=== PATIENT | male | born 1945 | race Caucasian/White ===

== ENCOUNTER 2018-06-09 04:02 | Inpatient (IN) | payer MEDICAID, MEDICARE ==
[2018-06-09] MEDS ORDERED: Sodium Chloride 0.9% 1,000 ML IV ONE (04:33)
--- NOTE | 2018-06-09 04:38 | ED Physician Chart ---
ED Chief Complaint/HPI - Patient Information Date Seen:: 06/09/18 Time Seen:: 04:05 Chief Complaint:: Abdominal Pain History of Present Illness:: onset x 2 days of intermittent, diffuse, crampy Abd. Pain, N/V/D; no report of trauma, LOC, ALOC, AMS, H/As, S/T, neck pain, C/P, SOB, A/C, fever, chills, or urinary s/s Allergies:: Allergies Allergy/AdvReac Type Severity Reaction Status Date / Time azithromycin Allergy Verified 06/09/18 04:26 Vitals:: Vital Signs - 8 hr 06/09/18 04:05 Temp 97.9 F HR 73 RR 20 BP 134/72 O2 Sat % 96 Historian:: Patient, EMS Review:: Nurse's Note Reviewed, Old Chart Reviewed, EMS run form Reviewed ED Review of Systems - Review of Systems General/Constitutional: No fever, No chills, No weight loss, No weakness, No diaphoresis, No edema, No loss of appetite Skin: No skin lesions, No rash, No bruising Head: No headache, No light-headedness Eyes: No loss of vision, No pain, No diplopia ENT: No earache, No nasal drainage, No sore throat, No tinnitus Neck: No neck pain, No swelling, No thyromegaly, No stiffness, No mass noted Cardio Vascular: No chest pain, No palpitations, No PND, No orthopnea, No edema Pulmonary: No SOB, Cough, No sputum, No wheezing GI: Nausea, Vomiting, Diarrhea, Pain, No melena, No hematochezia, No constipation, No hematemesis G/U: No dysuria, No frequency, No hematuria, No nacturia Musculoskeletal: No bone or joint pain, No back pain, No muscle pain Endocrine: No polyuria, No polydipsia Psychiatric: No prior psych history, No depression, No anxiety, No suicidal ideation, No homicidal ideation, No auditory hallucination, No visual hallucination Hematopoietic: No bruising, No lymphadenopathy Allergic/Immuno: No urticaria, No angioedema Neurological: No syncope, No focal symptoms, No weakness, No paresthesia, No headache, No seizure, No dizziness, Confusion, No vertigo ED Past Medical History - Past Medical History Obtainable: Yes Past Medical History: HTN, Asthma/COPD, Dyslipidemia, Dementia Family History: HTN Social History: Non Smoker, No Alcohol, No Drug Use, Single, Care Facility Surgical History: None Psychiatricy History: Dementia Medication: Reviewed Family Medical History - Family Member Mother History Unknown: Yes ED Physical Exam - Physical Examination General/Constitutional: Awake, Well-developed, well-nourished, Alert, No distress, GCS 15, Non-toxic appearing, Ambulatory Head: Atraumatic Eyes: Lids, conjuctiva normal, PERRL, EOMI Skin: Nl inspection, No rash, No skin lesions, No ecchymosis, Well hydrated, No lymphadenopathy ENMT: External ears, nose nl, TM canals nl, Nasal exam nl, Lips, teeth, gums nl , Oropharynx nl, Tonsils nl Neck: Nontender, Full ROM w/o pain, No JVD, No nuchal rigidity, No bruit, No mass, No stridor Respiratory: Nl effort/Exclusion, Clear to Auscultation, No Wheeze/Rhonchi/Rales Cardio Vascular: RRR, No murmur, gallop, rubs, NL S1 S2, Carotid/Femoral/Distal pulses equal bilaterally GI: No tenderness/rebounding/guarding, No organomegaly, No hernia, Normal BS's, Nondistended, No mass/bruits, No McBurney tenderness : No CVA tenderness Extremities: No tenderness or effusion, Full ROM, normal strength in all extremities, No edema, Normal digits & nails Neuro/Psych: Alert/oriented, DTR's symmetric, Normal sensory exam, Normal motor strength, Judgement/insight normal, Mood normal, Normal gait, No focal deficits Misc: Normal back, No paraspinal tenderness ED Labs/Radiology/EKG Results - Lab Results Comments:: Reviewed - Radiology Results Comments:: NAD - EKG Interpretations EKG Time:: 05:15 Rate & Rhythm: 77; NSR Comments:: non-specific st-t changes ED Septic Shock - . Is Septic Shock (SBP<90, OR Lactate>4 mmol\L) present?: No - <6hrs of presentation: Vital Signs: Vital Signs - 8 hr 06/09/18 04:05 Temp 97.9 F HR 73 RR 20 BP 134/72 O2 Sat % 96 ED Reassessment (Disposition) - Reassessment Reassessment Condition:: Improved - Diagnosis Diagnosis:: Abdominal Pain; N/V/D; AGE; Acute Gastritis; Intractable Pain - Aftercare/Follow up Instructions Aftercare/Follow-Up Instructions:: Counseled pt regarding lab results/diagnosis & need follow up, Counseled pt & family regarding lab results/diagnosis & need follow up - Patient Disposition Discharge/Transfer:: Acute Care w/in this hosp Accepting Physician:: Dr. Hoover Time Called:: 0600 Time Responded:: 06:00 Admitted to:: Med/Surg Spoke to:: Dr. Hoover Admitting Medical Physician:: Dr. Hoover Condition at Disposition:: Stable, Improved
[2018-06-09 05:24] LABS: HEMATOCRIT 37.5 % (41.0-60); HEMOGLOBIN 12.6 gm/dL (12-16); MEAN CELL VOLUME 92.8 fl (80-99); MEAN CORPUSCULAR HEMOGLOBIN 31.2 pg (27.0-31.0); MEAN CORPUSCULAR HGB CONC 33.7 pg (28.0-36.0); MEAN PLATELET VOLUME 9.8 fl; PLATELET COUNT 191 Th/cmm (150-400); RED BLOOD COUNT 4.04 Mil/cmm (3.80-5.80); RED CELL DISTRIBUTION WIDTH 13.9 % (11.5-20.0); WHITE BLOOD COUNT 6.6 Th/cmm (4.8-10.8)
[2018-06-09 05:36] LABS: INR 0.96 (0.5-1.4)
[2018-06-09 05:41] LABS: ALB/GLOB RATIO 1.2 (1.0-1.8); ALBUMIN 3.6 gm/dL (4.2-5.5); ALKALINE PHOSPHATASE 95 U/L (34-104); ANION GAP 9.3 (7.0-16.0); BILIRUBIN,TOTAL 0.3 mg/dL (0.3-1.0); BUN - UREA NITROGEN 16 mg/dL (7-25); CALCIUM SERUM 9.6 mg/dL (8.6-10.3); CARBON DIOXIDE 31.7 mEq/L (21.0-31.0); CHLORIDE 101 mEq/L (98-107); CHOLESTEROL 140 mg/dL (<200); CREATININE - SERUM 0.5 mg/dL (0.7-1.3); CREATININE KINASE 64 U/L (30-223); GLUCOSE 93 mg/dL (70-105); HDL -HIGH DENSITY LIPOPROTEIN 51 mg/dL (23-92); SGOT 15 U/L (13-39); SGPT/ALT 9 U/L (7-52); SODIUM SERUM 138 mEq/L (136-145); TOTAL PROTEIN,SERUM 6.5 gm/dL (6.0-8.3); TRIGLYCERIDES 56 mg/dL (<150)
[2018-06-09 05:57] LABS: AMYLASE SERUM 45 U/L (29-103); LIPASE 26 U/L (11-82)
[2018-06-09 06:04] LABS: BAND NEUTROPHILE 2 % (0-10); EOSINOPHIL 8 % (0-5); LYMPHOCYTE 32 % (20-50); MONOCYTE 10 % (2-10); NEUTROPHILS 48 % (40-80)
[2018-06-09 06:23] LABS: URINE SOURCE RANDOM
[2018-06-09 06:30] LABS: URINE BILIRUBIN NEGATIVE (NEGATIVE); URINE BLOOD NEGATIVE (NEGATIVE); URINE GLUCOSE (UA) NEGATIVE (NEGATIVE); URINE KETONE NEGATIVE (NEGATIVE); URINE LEUKOCYTE ESTERASE NEGATIVE (NEGATIVE); URINE NITRATE NEGATIVE (NEGATIVE); URINE PH 7.5 (4.6 - 8.0); URINE PROTEIN NEGATIVE (NEGATIVE); URINE UROBILINOGEN 0.2 E.U./dL (0.2 - 1.0)
[2018-06-09 06:37] LABS: URINE CLARITY CLEAR (CLEAR); URINE COLOR YELLOW
[2018-06-09 06:38] LABS: URINE MICROSCOPIC INDICATED? YES
[2018-06-09 06:41] LABS: URINE BACTERIA NONE SEEN /hpf (NONE SEEN); URINE EPITHELIAL CELLS RARE /lpf (FEW); URINE RBC NONE SEEN /hpf (0-5); URINE WBC NONE SEEN /hpf (0-5)
[2018-06-09] MEDS ORDERED: Magnesium Hydroxide (MOM) 30 mL UDC PO PRN (08:19)
[2018-06-09] MEDS ORDERED: D5-0.45NS 1,000 ML IV SCH (08:45)
--- NOTE | 2018-06-09 09:14 | Diagnostic Imaging Report ---
Portable chest x-ray HISTORY: Pain The heart size appears normal. Atherosclerotic calcination seen in the aorta. Pleural thickening noted along the minor fissure. Mild pleural thickening noted about the right costophrenic angle. Degenerative changes noted throughout the spine. IMPRESSION: 1. No acute abnormalities 2. Chronic changes as noted above 3. Atherosclerotic vascular changes
[2018-06-09] MEDS: Enoxaparin 40 mg/0.4 mL 0.4mL Syr SUBQ SCH (09:53)
--- NOTE | 2018-06-09 10:25 | Diagnostic Imaging Report ---
CT scan abdomen and pelvis without intravenous contrast HISTORY: Pain Total DLP equals 492 CTDI equals 10.0 Axial sections were obtained from the xiphoid process down to the pubic symphysis. Exam limited due to patient motion and absence pleural/bowel contrast. The liver exhibits a homogeneous parenchyma. There is a somewhat bulbous shaped of the left lobe. No focal lesions. The spleen appears normal. No definite focal abnormality seen in the region of the pancreas. There are bilateral renal cysts. Atherosclerotic calcification seen through the abdominal aorta. The exam of the pelvis demonstrates preservation of normal fat planes. No abnormal soft tissue masses or abnormal fluid collections. Moderately distended air and stool-filled large bowel noted. Severe degenerative changes seen to the spine. IMPRESSION: 1. Moderately distended stool and air-filled large bowel 2. Extensive atherosclerotic vascular changes 3. Bilateral renal cysts 4. No other acute abnormalities
[2018-06-10] MEDS: Enoxaparin 40 mg/0.4 mL 0.4mL Syr SUBQ SCH (08:35)
[2018-06-10] MEDS: POLYETHYLENE GLYCOL 3350 17 GM PACK PO SCH (17:32)
--- NOTE | 2018-06-10 19:36 | Consultation ---
DATE OF CONSULTATION: 06/10/2018 REQUESTING PHYSICIAN: Dr. Reed Ruiz. REASON FOR CONSULTATION: Abdominal pain. Thank you for asking us to see this patient in consultation. HISTORY OF PRESENT ILLNESS: This is a 73-year-old male with extensive psychiatric history who presents to the hospital with intermittent diffuse cramping abdominal pain. The patient is a rather poor historian. He denies ever having had a colonoscopy and is currently refusing any endoscopic workup. He is also refusing having an IV line. He had a CT scan, which showed distended large colon with moderate amount of fecal retention. He currently is tolerating clear liquid diet and states that he wants more to eat. PAST MEDICAL HISTORY: History of hypertension, asthma, COPD, and psychiatric history. FAMILY HISTORY: Significant for hypertension. SOCIAL HISTORY: She is a nonsmoker, no tobacco, no alcohol, no drugs. He lives in a care facility. He has a history of dementia as well. REVIEW OF SYSTEMS: Positive for mild abdominal pain. All other 12-point systems are negative. PHYSICAL EXAMINATION: VITAL SIGNS: Temperature 97.9, heart rate of 73, respiratory rate of 20, blood pressure is 134/72, and satting 96% on room air. GENERAL: He is in no acute distress. HEENT: Normocephalic, atraumatic. PERRL positive. LUNGS: Clear bilaterally. No wheeze, rales, or rhonchi. HEART: Regular rate and rhythm. Normal S1, S2. ABDOMEN: Soft, nontender, bowel sounds are positive. EXTREMITIES: Show no lower extremity edema. PSYCHOLOGICAL: Alert and oriented x1. NEUROLOGIC: Grossly intact. LABORATORY DATA: White count of 6.6, hemoglobin 12.6, and platelets of 191,000. Sodium is 138, potassium 4.0, BUN 16, and creatinine 0.5. IMAGING STUDIES: CT of the abdomen and pelvis showed moderately distended stool and air filled large bowel. ASSESSMENT AND PLAN: This is a 73-year-old gentleman with history of dementia and psychiatric history who presents with abdominal pain and fecal retention. 1. Intractable abdominal pain. 2. Fecal retention. 3. Psychiatric disease. 4. Dementia. I feel that his abdominal discomfort is largely related to constipation. Would recommend putting the patient on MiraLax daily up to twice a day as well as add a tap water enema and titrate to having a bowel movement. We will evaluate the patient after he has had a bowel movement to see if this improves his abdominal pain. If not, would recommend endoscopy and possibly colonoscopy; however, the patient currently is refusing and risks may outweigh any benefits in this situation. For now, I actually advanced the patient's diet as he is currently tolerating clear liquid diet and states that he feels better and we will see if his symptoms resolve after clearance of his constipation. Thank you for allowing us to participate in this patient's care. JOB# [id number]
--- NOTE | 2018-06-10 22:34 | History & Physical ---
ADMIT DATE: 06/09/2018 CHIEF COMPLAINT: Abdominal pain. HISTORY OF PRESENT ILLNESS: The patient is a 73-year-old male admitted due to intermittent abdominal pain. A CT scan done in the Emergency Room revealed extensive distended stool and air filled large bowel. The patient was initially kept n.p.o. with IV fluid. However, the patient refused IV fluids. GI consultation requested. The patient is very confused, agitated and noncompliant and with apparent history of psychosis. He refused colonoscopy. PAST MEDICAL HISTORY: Apparently schizophrenia, COPD, asthma, hypertension. PAST SURGICAL HISTORY: No significant past surgical history. MEDICATIONS: See medication reconciliation list. ALLERGIES: No known drug allergy. FAMILY HISTORY: Noncontributory. SOCIAL HISTORY: The patient smoked before. No history of IV drug use. REVIEW OF SYSTEMS: As per HPI. PHYSICAL EXAMINATION: GENERAL: Well-developed, well-nourished male in no acute distress. SKIN: Warm and dry. VITAL SIGNS: Basically stable. HEENT: Normocephalic, atraumatic. Pupils equal, round, react to light and accommodation. CHEST: Symmetrical. LUNGS: Few wheezing appreciated. CARDIAC: Normal sinus rhythm. S1, S2. ABDOMEN: Benign. There is mild tenderness. Bowel sound is decreased. EXTREMITIES: No clubbing, cyanosis, edema bilaterally, 2+ equally. NEUROLOGIC: Unremarkable. LABORATORY DATA: Reviewed. ASSESSMENT AND PLAN: 1. Intermittent abdominal pain: It is probably due to least partially fecal retention. The patient refused any workup. Gastrointestinal consultation requested and appreciated. 2. Fecal retention: The patient had refused enema and we will provide a clear liquid diet. 3. Psychosis: Psychiatric consultation requested and appreciated. 4. Altered level of conscious due to metabolic encephalopathy and dementia. 5. Chronic obstructive pulmonary disease: RT protocol if the patient allows. 6. History of hypertension. 7. Noncompliance: This is partially related to the patient's psychiatric history. JOB# [id number]
--- NOTE | 2018-06-11 08:51 | GI Progress Note ---
Subjective - Review of Systems Service Date: 06/11/18 Subjective: Refusing all intervention aside from meals. No reported BM Objective - Results Result Diagrams: 06/09/18 05:15 06/09/18 05:15 Recent Labs: Laboratory Last Values WBC 6.6 Th/cmm (4.8-10.8) 06/09/18 05:15 RBC 4.04 Mil/cmm (3.80-5.80) 06/09/18 05:15 Hgb 12.6 gm/dL (12-16) 06/09/18 05:15 Hct 37.5 % (41.0-60) L 06/09/18 05:15 MCV 92.8 fl (80-99) 06/09/18 05:15 MCH 31.2 pg (27.0-31.0) H 06/09/18 05:15 MCHC Differential 33.7 pg (28.0-36.0) 06/09/18 05:15 RDW 13.9 % (11.5-20.0) 06/09/18 05:15 Plt Count 191 Th/cmm (150-400) 06/09/18 05:15 MPV 9.8 fl 06/09/18 05:15 Add Manual Diff YES 06/09/18 05:15 Neutrophils % RETAIL PERSONAL BANKER 06/09/18 05:15 Band Neutrophils % 2 % (0-10) 06/09/18 05:15 Lymphocytes % RETAIL PERSONAL BANKER 06/09/18 05:15 Monocytes % RETAIL PERSONAL BANKER 06/09/18 05:15 Eosinophils % RETAIL PERSONAL BANKER 06/09/18 05:15 Basophils % RETAIL PERSONAL BANKER 06/09/18 05:15 Neutrophils (Manual) 48 % (40-80) 06/09/18 05:15 Lymphocytes 32 % (20-50) 06/09/18 05:15 Monocytes 10 % (2-10) 06/09/18 05:15 Eosinophils 8 % (0-5) H 06/09/18 05:15 PT 10.0 SECONDS (9.5-11.5) 06/09/18 05:15 INR 0.96 (0.5-1.4) 06/09/18 05:15 Sodium 138 mEq/L (136-145) 06/09/18 05:15 Potassium 4.0 mEq/L (3.5-5.1) 06/09/18 05:15 Chloride 101 mEq/L (98-107) 06/09/18 05:15 Carbon Dioxide 31.7 mEq/L (21.0-31.0) H 06/09/18 05:15 Anion Gap 9.3 (7.0-16.0) 06/09/18 05:15 BUN 16 mg/dL (7-25) 06/09/18 05:15 Creatinine 0.5 mg/dL (0.7-1.3) L 06/09/18 05:15 Est GFR ( Amer) TNP 06/09/18 05:15 Est GFR (Non-Af Amer) TNP 06/09/18 05:15 BUN/Creatinine Ratio 32.0 06/09/18 05:15 Glucose 93 mg/dL (70-105) 06/09/18 05:15 Calcium 9.6 mg/dL (8.6-10.3) 06/09/18 05:15 Total Bilirubin 0.3 mg/dL (0.3-1.0) 06/09/18 05:15 AST 15 U/L (13-39) 06/09/18 05:15 ALT 9 U/L (7-52) 06/09/18 05:15 Alkaline Phosphatase 95 U/L (34-104) 06/09/18 05:15 Creatine Kinase 64 U/L (30-223) 06/09/18 05:15 Troponin I 0.01 ng/mL (0.01-0.05) 06/09/18 05:15 B-Natriuretic Peptide 71.0 pg/mL (5.0-100.0) 06/09/18 05:15 Total Protein 6.5 gm/dL (6.0-8.3) 06/09/18 05:15 Albumin 3.6 gm/dL (4.2-5.5) L 06/09/18 05:15 Globulin 2.9 gm/dL 06/09/18 05:15 Albumin/Globulin Ratio 1.2 (1.0-1.8) 06/09/18 05:15 Triglycerides 56 mg/dL (<150) 06/09/18 05:15 Cholesterol 140 mg/dL (<200) 06/09/18 05:15 LDL Cholesterol Direct 81 mg/dL (75-193) 06/09/18 05:15 HDL Cholesterol 51 mg/dL (23-92) 06/09/18 05:15 Amylase 45 U/L (29-103) 06/09/18 05:15 Lipase 26 U/L (11-82) 06/09/18 05:15 Urine Source RANDOM 06/09/18 04:20 Urine Color YELLOW 06/09/18 04:20 Urine Clarity CLEAR (CLEAR) 06/09/18 04:20 Urine pH 7.5 (4.6 - 8.0) 06/09/18 04:20 Ur Specific [place] 1.010 (1.005-1.030) 06/09/18 04:20 Urine Protein NEGATIVE mg/dL (NEGATIVE) 06/09/18 04:20 Urine Glucose (UA) NEGATIVE mg/dL (NEGATIVE) 06/09/18 04:20 Urine Ketones NEGATIVE mg/dL (NEGATIVE) 06/09/18 04:20 Urine Blood NEGATIVE (NEGATIVE) 06/09/18 04:20 Urine Nitrate NEGATIVE (NEGATIVE) 06/09/18 04:20 Urine Bilirubin NEGATIVE (NEGATIVE) 06/09/18 04:20 Urine Urobilinogen 0.2 E.U./dL (0.2 - 1.0) 06/09/18 04:20 Ur Leukocyte Esterase NEGATIVE (NEGATIVE) 06/09/18 04:20 Urine RBC NONE SEEN /hpf (0-5) 06/09/18 04:20 Urine WBC NONE SEEN /hpf (0-5) 06/09/18 04:20 Ur Epithelial Cells RARE /lpf (FEW) 06/09/18 04:20 Urine Bacteria NONE SEEN /hpf (NONE SEEN) 06/09/18 04:20 - Physical Exam Vitals and I&O: Vital Signs Temp 97.9 F 06/11/18 04:00 Pulse 74 06/11/18 04:00 Resp 19 06/11/18 04:00 BP 124/67 06/11/18 04:00 Pulse Ox 94 06/11/18 04:00 Intake & Output 06/10/18 06/11/18 06/11/18 18:59 06:59 18:59 Intake Total 1200 Balance 1200 Weight (lbs) 71.758 kg 72.575 kg Intake: Oral 1200 Other: # Voids 3 # Bowel Movements 0 Weight Source Bedscale Bedscale Active Medications: Current Medications Acetaminophen (Tylenol) 325 mg PO Q6HR PRN PRN Reason: Fever >101 Stop: 08/08/18 08:18 Acetaminophen (Tylenol) 650 mg PO Q6HR PRN PRN Reason: Pain (Mild) Stop: 08/08/18 08:18 Last Admin: 06/10/18 22:17 Dose: 650 mg Docusate Sodium (Colace) 100 mg PO DAILY [facility] Stop: 08/08/18 08:59 Last Admin: 06/10/18 08:34 Dose: 100 mg Enoxaparin Sodium (Lovenox) 40 mg SUBQ DAILY [facility] Stop: 08/08/18 08:59 Last Admin: 06/10/18 08:35 Dose: Not Given Dextrose/Sodium Chloride (D5-0.45ns) 1,000 mls @ 100 mls/hr IV .Q10H [facility] Stop: 08/08/18 08:44 Magnesium Hydroxide (Milk Of Magnesia) 30 ml PO HS PRN PRN Reason: Constipation Stop: 08/08/18 08:18 Ondansetron HCl (Zofran) 4 mg IV Q4H PRN PRN Reason: Nausea / Vomiting Stop: 08/08/18 08:28 Pantoprazole Sodium (Protonix) 40 mg IVP DAILY [facility] Stop: 08/08/18 08:59 Last Admin: 06/10/18 08:35 Dose: Not Given Polyethylene Glycol (Miralax) 17 gm PO DAILY [facility] Stop: 08/09/18 16:59 Last Admin: 06/10/18 17:32 Dose: 17 gm General: Alert, Other (disheveled appearing) Cardiovascular: Regular rate Abdomen: Bowel sounds, no Soft, no Tender, no Hepatomegaly, no Distended, no Rebound, no Mass Assessment/Plan - Assessment Assessment: # Fecal impaction on CT Pt refusing all intervention including laxatives and IV line. He is eating his meals. Appropriate therapy would be for tap water enemas, and miralax bid to produce BMs. Pt is not compliant with this. Plan: - if pt allows, enema and miralax - diet as tolerated - suggest psych eval
[2018-06-11] MEDS: POLYETHYLENE GLYCOL 3350 17 GM PACK PO SCH ×3 (09:32→17:43)
[2018-06-11] MEDS: Enoxaparin 40 mg/0.4 mL 0.4mL Syr SUBQ SCH (10:15)
--- NOTE | 2018-06-11 19:15 | Internal Medicine Prog Note ---
Internal Medicine Subjective - Subjective Service Date: 06/11/18 Patient seen and examined:: without staff Patient is:: awake, verbal, non-interactive, arousable, in bed Per staff patient has:: no adverse event Internal Medicine Objective - Results Result Diagrams: 06/09/18 05:15 06/09/18 05:15 Recent Labs: Laboratory Last Values WBC 6.6 Th/cmm (4.8-10.8) 06/09/18 05:15 RBC 4.04 Mil/cmm (3.80-5.80) 06/09/18 05:15 Hgb 12.6 gm/dL (12-16) 06/09/18 05:15 Hct 37.5 % (41.0-60) L 06/09/18 05:15 MCV 92.8 fl (80-99) 06/09/18 05:15 MCH 31.2 pg (27.0-31.0) H 06/09/18 05:15 MCHC Differential 33.7 pg (28.0-36.0) 06/09/18 05:15 RDW 13.9 % (11.5-20.0) 06/09/18 05:15 Plt Count 191 Th/cmm (150-400) 06/09/18 05:15 MPV 9.8 fl 06/09/18 05:15 Add Manual Diff YES 06/09/18 05:15 Neutrophils % INSPECTION MANAGER 06/09/18 05:15 Band Neutrophils % 2 % (0-10) 06/09/18 05:15 Lymphocytes % INSPECTION MANAGER 06/09/18 05:15 Monocytes % INSPECTION MANAGER 06/09/18 05:15 Eosinophils % INSPECTION MANAGER 06/09/18 05:15 Basophils % INSPECTION MANAGER 06/09/18 05:15 Neutrophils (Manual) 48 % (40-80) 06/09/18 05:15 Lymphocytes 32 % (20-50) 06/09/18 05:15 Monocytes 10 % (2-10) 06/09/18 05:15 Eosinophils 8 % (0-5) H 06/09/18 05:15 PT 10.0 SECONDS (9.5-11.5) 06/09/18 05:15 INR 0.96 (0.5-1.4) 06/09/18 05:15 Sodium 138 mEq/L (136-145) 06/09/18 05:15 Potassium 4.0 mEq/L (3.5-5.1) 06/09/18 05:15 Chloride 101 mEq/L (98-107) 06/09/18 05:15 Carbon Dioxide 31.7 mEq/L (21.0-31.0) H 06/09/18 05:15 Anion Gap 9.3 (7.0-16.0) 06/09/18 05:15 BUN 16 mg/dL (7-25) 06/09/18 05:15 Creatinine 0.5 mg/dL (0.7-1.3) L 06/09/18 05:15 Est GFR ( Amer) TNP 06/09/18 05:15 Est GFR (Non-Af Amer) TNP 06/09/18 05:15 BUN/Creatinine Ratio 32.0 06/09/18 05:15 Glucose 93 mg/dL (70-105) 06/09/18 05:15 Calcium 9.6 mg/dL (8.6-10.3) 06/09/18 05:15 Total Bilirubin 0.3 mg/dL (0.3-1.0) 06/09/18 05:15 AST 15 U/L (13-39) 06/09/18 05:15 ALT 9 U/L (7-52) 06/09/18 05:15 Alkaline Phosphatase 95 U/L (34-104) 06/09/18 05:15 Creatine Kinase 64 U/L (30-223) 06/09/18 05:15 Troponin I 0.01 ng/mL (0.01-0.05) 06/09/18 05:15 B-Natriuretic Peptide 71.0 pg/mL (5.0-100.0) 06/09/18 05:15 Total Protein 6.5 gm/dL (6.0-8.3) 06/09/18 05:15 Albumin 3.6 gm/dL (4.2-5.5) L 06/09/18 05:15 Globulin 2.9 gm/dL 06/09/18 05:15 Albumin/Globulin Ratio 1.2 (1.0-1.8) 06/09/18 05:15 Triglycerides 56 mg/dL (<150) 06/09/18 05:15 Cholesterol 140 mg/dL (<200) 06/09/18 05:15 LDL Cholesterol Direct 81 mg/dL (75-193) 06/09/18 05:15 HDL Cholesterol 51 mg/dL (23-92) 06/09/18 05:15 Amylase 45 U/L (29-103) 06/09/18 05:15 Lipase 26 U/L (11-82) 06/09/18 05:15 Urine Source RANDOM 06/09/18 04:20 Urine Color YELLOW 06/09/18 04:20 Urine Clarity CLEAR (CLEAR) 06/09/18 04:20 Urine pH 7.5 (4.6 - 8.0) 06/09/18 04:20 Ur Specific [place] 1.010 (1.005-1.030) 06/09/18 04:20 Urine Protein NEGATIVE mg/dL (NEGATIVE) 06/09/18 04:20 Urine Glucose (UA) NEGATIVE mg/dL (NEGATIVE) 06/09/18 04:20 Urine Ketones NEGATIVE mg/dL (NEGATIVE) 06/09/18 04:20 Urine Blood NEGATIVE (NEGATIVE) 06/09/18 04:20 Urine Nitrate NEGATIVE (NEGATIVE) 06/09/18 04:20 Urine Bilirubin NEGATIVE (NEGATIVE) 06/09/18 04:20 Urine Urobilinogen 0.2 E.U./dL (0.2 - 1.0) 06/09/18 04:20 Ur Leukocyte Esterase NEGATIVE (NEGATIVE) 06/09/18 04:20 Urine RBC NONE SEEN /hpf (0-5) 06/09/18 04:20 Urine WBC NONE SEEN /hpf (0-5) 06/09/18 04:20 Ur Epithelial Cells RARE /lpf (FEW) 06/09/18 04:20 Urine Bacteria NONE SEEN /hpf (NONE SEEN) 06/09/18 04:20 - Physical Exam Vitals and I&O: Vital Signs Temp 98.0 F 06/11/18 15:56 Pulse 73 06/11/18 15:56 Resp 18 06/11/18 15:56 BP 128/71 06/11/18 15:56 Pulse Ox 96 06/11/18 15:56 Intake & Output 06/11/18 06/11/18 06/12/18 06:59 18:59 06:59 Intake Total 620 Balance 620 Weight (lbs) 72.575 kg 72.575 kg Intake: Oral 620 Other: # Voids 4 # Bowel Movements 1 Weight Source Bedscale Bedscale Active Medications: Current Medications Acetaminophen (Tylenol) 325 mg PO Q6HR PRN PRN Reason: Fever >101 Stop: 08/08/18 08:18 Acetaminophen (Tylenol) 650 mg PO Q6HR PRN PRN Reason: Pain (Mild) Stop: 08/08/18 08:18 Last Admin: 06/11/18 12:52 Dose: 650 mg Docusate Sodium (Colace) 100 mg PO DAILY [facility] Stop: 08/08/18 08:59 Last Admin: 06/11/18 09:36 Dose: 100 mg Enoxaparin Sodium (Lovenox) 40 mg SUBQ DAILY [facility] Stop: 08/08/18 08:59 Last Admin: 06/11/18 10:15 Dose: Not Given Dextrose/Sodium Chloride (D5-0.45ns) 1,000 mls @ 100 mls/hr IV .Q10H [facility] Stop: 08/08/18 08:44 Magnesium Hydroxide (Milk Of Magnesia) 30 ml PO HS PRN PRN Reason: Constipation Stop: 08/08/18 08:18 Ondansetron HCl (Zofran) 4 mg IV Q4H PRN PRN Reason: Nausea / Vomiting Stop: 08/08/18 08:28 Pantoprazole Sodium (Protonix) 40 mg IVP DAILY [facility] Stop: 08/08/18 08:59 Last Admin: 06/11/18 09:36 Dose: 40 mg Polyethylene Glycol (Miralax) 17 gm PO BID [facility] Stop: 08/10/18 08:59 Last Admin: 06/11/18 17:43 Dose: 17 gm General: weak, lethargic, demented, disheveled HEENT: NC/AT, PERRLA, EOMI, anicteric sclerae, throat clear Neck: Supple, No JVD, + JVD Lungs: CTAB Cardiovascular: RRR, Normal S1, Normal S2 Abdomen: soft, non-tender, non-distended Extremities: clear Neurological: no change Internal Medicine Assmt/Plan - Assessment Assessment: Intermittent abd pain: due to fecal impaction? pt refused Colonoscopy. ALOC: on and off; observe. Agitation: sitter PRN. Noncompliance: education provided. Skin rash/itching: Benadryl prn COPD: RT protocol.
[2018-06-12] MEDS: Enoxaparin 40 mg/0.4 mL 0.4mL Syr SUBQ SCH (08:27)
[2018-06-12] MEDS: POLYETHYLENE GLYCOL 3350 17 GM PACK PO SCH ×2 (08:28→16:33)
--- NOTE | 2018-06-12 11:05 | GI Progress Note ---
Subjective - Review of Systems Service Date: 06/12/18 Subjective: Was complaining about breathing difficulty this AM. Still no BM Objective - Results Result Diagrams: 06/09/18 05:15 06/09/18 05:15 Recent Labs: Laboratory Last Values WBC 6.6 Th/cmm (4.8-10.8) 06/09/18 05:15 RBC 4.04 Mil/cmm (3.80-5.80) 06/09/18 05:15 Hgb 12.6 gm/dL (12-16) 06/09/18 05:15 Hct 37.5 % (41.0-60) L 06/09/18 05:15 MCV 92.8 fl (80-99) 06/09/18 05:15 MCH 31.2 pg (27.0-31.0) H 06/09/18 05:15 MCHC Differential 33.7 pg (28.0-36.0) 06/09/18 05:15 RDW 13.9 % (11.5-20.0) 06/09/18 05:15 Plt Count 191 Th/cmm (150-400) 06/09/18 05:15 MPV 9.8 fl 06/09/18 05:15 Add Manual Diff YES 06/09/18 05:15 Neutrophils % PATENT PROSECUTION PARALEGAL 06/09/18 05:15 Band Neutrophils % 2 % (0-10) 06/09/18 05:15 Lymphocytes % PATENT PROSECUTION PARALEGAL 06/09/18 05:15 Monocytes % PATENT PROSECUTION PARALEGAL 06/09/18 05:15 Eosinophils % PATENT PROSECUTION PARALEGAL 06/09/18 05:15 Basophils % PATENT PROSECUTION PARALEGAL 06/09/18 05:15 Neutrophils (Manual) 48 % (40-80) 06/09/18 05:15 Lymphocytes 32 % (20-50) 06/09/18 05:15 Monocytes 10 % (2-10) 06/09/18 05:15 Eosinophils 8 % (0-5) H 06/09/18 05:15 PT 10.0 SECONDS (9.5-11.5) 06/09/18 05:15 INR 0.96 (0.5-1.4) 06/09/18 05:15 Sodium 138 mEq/L (136-145) 06/09/18 05:15 Potassium 4.0 mEq/L (3.5-5.1) 06/09/18 05:15 Chloride 101 mEq/L (98-107) 06/09/18 05:15 Carbon Dioxide 31.7 mEq/L (21.0-31.0) H 06/09/18 05:15 Anion Gap 9.3 (7.0-16.0) 06/09/18 05:15 BUN 16 mg/dL (7-25) 06/09/18 05:15 Creatinine 0.5 mg/dL (0.7-1.3) L 06/09/18 05:15 Est GFR ( Amer) TNP 06/09/18 05:15 Est GFR (Non-Af Amer) TNP 06/09/18 05:15 BUN/Creatinine Ratio 32.0 06/09/18 05:15 Glucose 93 mg/dL (70-105) 06/09/18 05:15 Calcium 9.6 mg/dL (8.6-10.3) 06/09/18 05:15 Total Bilirubin 0.3 mg/dL (0.3-1.0) 06/09/18 05:15 AST 15 U/L (13-39) 06/09/18 05:15 ALT 9 U/L (7-52) 06/09/18 05:15 Alkaline Phosphatase 95 U/L (34-104) 06/09/18 05:15 Creatine Kinase 64 U/L (30-223) 06/09/18 05:15 Troponin I 0.01 ng/mL (0.01-0.05) 06/09/18 05:15 B-Natriuretic Peptide 71.0 pg/mL (5.0-100.0) 06/09/18 05:15 Total Protein 6.5 gm/dL (6.0-8.3) 06/09/18 05:15 Albumin 3.6 gm/dL (4.2-5.5) L 06/09/18 05:15 Globulin 2.9 gm/dL 06/09/18 05:15 Albumin/Globulin Ratio 1.2 (1.0-1.8) 06/09/18 05:15 Triglycerides 56 mg/dL (<150) 06/09/18 05:15 Cholesterol 140 mg/dL (<200) 06/09/18 05:15 LDL Cholesterol Direct 81 mg/dL (75-193) 06/09/18 05:15 HDL Cholesterol 51 mg/dL (23-92) 06/09/18 05:15 Amylase 45 U/L (29-103) 06/09/18 05:15 Lipase 26 U/L (11-82) 06/09/18 05:15 Urine Source RANDOM 06/09/18 04:20 Urine Color YELLOW 06/09/18 04:20 Urine Clarity CLEAR (CLEAR) 06/09/18 04:20 Urine pH 7.5 (4.6 - 8.0) 06/09/18 04:20 Ur Specific [place] 1.010 (1.005-1.030) 06/09/18 04:20 Urine Protein NEGATIVE mg/dL (NEGATIVE) 06/09/18 04:20 Urine Glucose (UA) NEGATIVE mg/dL (NEGATIVE) 06/09/18 04:20 Urine Ketones NEGATIVE mg/dL (NEGATIVE) 06/09/18 04:20 Urine Blood NEGATIVE (NEGATIVE) 06/09/18 04:20 Urine Nitrate NEGATIVE (NEGATIVE) 06/09/18 04:20 Urine Bilirubin NEGATIVE (NEGATIVE) 06/09/18 04:20 Urine Urobilinogen 0.2 E.U./dL (0.2 - 1.0) 06/09/18 04:20 Ur Leukocyte Esterase NEGATIVE (NEGATIVE) 06/09/18 04:20 Urine RBC NONE SEEN /hpf (0-5) 06/09/18 04:20 Urine WBC NONE SEEN /hpf (0-5) 06/09/18 04:20 Ur Epithelial Cells RARE /lpf (FEW) 06/09/18 04:20 Urine Bacteria NONE SEEN /hpf (NONE SEEN) 06/09/18 04:20 - Physical Exam Vitals and I&O: Vital Signs Temp 98.0 F 06/11/18 15:56 Pulse 79 06/12/18 08:25 Resp 18 06/12/18 08:25 BP 151/80 06/12/18 08:25 Pulse Ox 94 06/12/18 08:25 Intake & Output 06/11/18 06/12/18 06/12/18 18:59 06:59 18:59 Intake Total 620 340 Output Total 400 Balance 620 -60 Weight (lbs) 72.575 kg 70.987 kg Intake: Oral 620 340 Output: Urine 400 Other: # Voids 4 400 # Bowel Movements 1 0 Weight Source Bedscale Bedscale Active Medications: Current Medications Acetaminophen (Tylenol) 325 mg PO Q6HR PRN PRN Reason: Fever >101 Stop: 08/08/18 08:18 Last Admin: 06/11/18 21:29 Dose: 325 mg Acetaminophen (Tylenol) 650 mg PO Q6HR PRN PRN Reason: Pain (Mild) Stop: 08/08/18 08:18 Last Admin: 06/11/18 12:52 Dose: 650 mg Diphenhydramine HCl (Benadryl) 50 mg PO Q6H PRN PRN Reason: Itching Stop: 08/10/18 19:28 Last Admin: 06/11/18 21:29 Dose: 50 mg Docusate Sodium (Colace) 100 mg PO DAILY [facility] Stop: 08/08/18 08:59 Last Admin: 06/12/18 08:34 Dose: 100 mg Enoxaparin Sodium (Lovenox) 40 mg SUBQ DAILY [facility] Stop: 08/08/18 08:59 Last Admin: 06/12/18 08:27 Dose: Not Given Dextrose/Sodium Chloride (D5-0.45ns) 1,000 mls @ 100 mls/hr IV .Q10H [facility] Stop: 08/08/18 08:44 Magnesium Hydroxide (Milk Of Magnesia) 30 ml PO HS PRN PRN Reason: Constipation Stop: 08/08/18 08:18 Ondansetron HCl (Zofran) 4 mg IV Q4H PRN PRN Reason: Nausea / Vomiting Stop: 08/08/18 08:28 Pantoprazole Sodium (Protonix) 40 mg IVP DAILY [facility] Stop: 08/08/18 08:59 Last Admin: 06/12/18 08:27 Dose: Not Given Polyethylene Glycol (Miralax) 17 gm PO BID [facility] Stop: 08/10/18 08:59 Last Admin: 06/12/18 08:28 Dose: Not Given General: Alert, Other (disheveled appearing) Cardiovascular: Regular rate Abdomen: Bowel sounds, no Soft, no Tender, no Hepatomegaly, no Distended, no Rebound, no Mass Assessment/Plan - Assessment Assessment: # Fecal impaction on CT Pt refusing all intervention including laxatives and IV line. He is eating his meals. Appropriate therapy would be for tap water enemas, and miralax bid to produce BMs. Pt is not compliant with this. Plan: - try dulcolax by mouth and [place] as pt apparently taking pills - if pt allows, enema and miralax - diet as tolerated - suggest psych eval
--- NOTE | 2018-06-12 20:14 | Internal Medicine Prog Note ---
Internal Medicine Subjective - Subjective Service Date: 06/12/18 Patient seen and examined:: without staff Patient is:: awake, verbal, non-interactive, arousable, in bed Per staff patient has:: no adverse event Internal Medicine Objective - Results Result Diagrams: 06/09/18 05:15 06/09/18 05:15 Recent Labs: Laboratory Last Values WBC 6.6 Th/cmm (4.8-10.8) 06/09/18 05:15 RBC 4.04 Mil/cmm (3.80-5.80) 06/09/18 05:15 Hgb 12.6 gm/dL (12-16) 06/09/18 05:15 Hct 37.5 % (41.0-60) L 06/09/18 05:15 MCV 92.8 fl (80-99) 06/09/18 05:15 MCH 31.2 pg (27.0-31.0) H 06/09/18 05:15 MCHC Differential 33.7 pg (28.0-36.0) 06/09/18 05:15 RDW 13.9 % (11.5-20.0) 06/09/18 05:15 Plt Count 191 Th/cmm (150-400) 06/09/18 05:15 MPV 9.8 fl 06/09/18 05:15 Add Manual Diff YES 06/09/18 05:15 Neutrophils % MANAGER CATH LAB 06/09/18 05:15 Band Neutrophils % 2 % (0-10) 06/09/18 05:15 Lymphocytes % MANAGER CATH LAB 06/09/18 05:15 Monocytes % MANAGER CATH LAB 06/09/18 05:15 Eosinophils % MANAGER CATH LAB 06/09/18 05:15 Basophils % MANAGER CATH LAB 06/09/18 05:15 Neutrophils (Manual) 48 % (40-80) 06/09/18 05:15 Lymphocytes 32 % (20-50) 06/09/18 05:15 Monocytes 10 % (2-10) 06/09/18 05:15 Eosinophils 8 % (0-5) H 06/09/18 05:15 PT 10.0 SECONDS (9.5-11.5) 06/09/18 05:15 INR 0.96 (0.5-1.4) 06/09/18 05:15 Sodium 138 mEq/L (136-145) 06/09/18 05:15 Potassium 4.0 mEq/L (3.5-5.1) 06/09/18 05:15 Chloride 101 mEq/L (98-107) 06/09/18 05:15 Carbon Dioxide 31.7 mEq/L (21.0-31.0) H 06/09/18 05:15 Anion Gap 9.3 (7.0-16.0) 06/09/18 05:15 BUN 16 mg/dL (7-25) 06/09/18 05:15 Creatinine 0.5 mg/dL (0.7-1.3) L 06/09/18 05:15 Est GFR ( Amer) TNP 06/09/18 05:15 Est GFR (Non-Af Amer) TNP 06/09/18 05:15 BUN/Creatinine Ratio 32.0 06/09/18 05:15 Glucose 93 mg/dL (70-105) 06/09/18 05:15 Calcium 9.6 mg/dL (8.6-10.3) 06/09/18 05:15 Total Bilirubin 0.3 mg/dL (0.3-1.0) 06/09/18 05:15 AST 15 U/L (13-39) 06/09/18 05:15 ALT 9 U/L (7-52) 06/09/18 05:15 Alkaline Phosphatase 95 U/L (34-104) 06/09/18 05:15 Creatine Kinase 64 U/L (30-223) 06/09/18 05:15 Troponin I 0.01 ng/mL (0.01-0.05) 06/09/18 05:15 B-Natriuretic Peptide 71.0 pg/mL (5.0-100.0) 06/09/18 05:15 Total Protein 6.5 gm/dL (6.0-8.3) 06/09/18 05:15 Albumin 3.6 gm/dL (4.2-5.5) L 06/09/18 05:15 Globulin 2.9 gm/dL 06/09/18 05:15 Albumin/Globulin Ratio 1.2 (1.0-1.8) 06/09/18 05:15 Triglycerides 56 mg/dL (<150) 06/09/18 05:15 Cholesterol 140 mg/dL (<200) 06/09/18 05:15 LDL Cholesterol Direct 81 mg/dL (75-193) 06/09/18 05:15 HDL Cholesterol 51 mg/dL (23-92) 06/09/18 05:15 Amylase 45 U/L (29-103) 06/09/18 05:15 Lipase 26 U/L (11-82) 06/09/18 05:15 Urine Source RANDOM 06/09/18 04:20 Urine Color YELLOW 06/09/18 04:20 Urine Clarity CLEAR (CLEAR) 06/09/18 04:20 Urine pH 7.5 (4.6 - 8.0) 06/09/18 04:20 Ur Specific [place] 1.010 (1.005-1.030) 06/09/18 04:20 Urine Protein NEGATIVE mg/dL (NEGATIVE) 06/09/18 04:20 Urine Glucose (UA) NEGATIVE mg/dL (NEGATIVE) 06/09/18 04:20 Urine Ketones NEGATIVE mg/dL (NEGATIVE) 06/09/18 04:20 Urine Blood NEGATIVE (NEGATIVE) 06/09/18 04:20 Urine Nitrate NEGATIVE (NEGATIVE) 06/09/18 04:20 Urine Bilirubin NEGATIVE (NEGATIVE) 06/09/18 04:20 Urine Urobilinogen 0.2 E.U./dL (0.2 - 1.0) 06/09/18 04:20 Ur Leukocyte Esterase NEGATIVE (NEGATIVE) 06/09/18 04:20 Urine RBC NONE SEEN /hpf (0-5) 06/09/18 04:20 Urine WBC NONE SEEN /hpf (0-5) 06/09/18 04:20 Ur Epithelial Cells RARE /lpf (FEW) 06/09/18 04:20 Urine Bacteria NONE SEEN /hpf (NONE SEEN) 06/09/18 04:20 - Physical Exam Vitals and I&O: Vital Signs Temp 98.4 F 06/12/18 20:00 Pulse 76 06/12/18 20:00 Resp 19 06/12/18 20:00 BP 118/58 06/12/18 20:00 Pulse Ox 95 06/12/18 20:00 Intake & Output 06/12/18 06/12/18 06/13/18 06:59 18:59 06:59 Intake Total 340 500 Output Total 400 Balance -60 500 Weight (lbs) 70.987 kg 70.76 kg Intake: Oral 340 500 Output: Urine 400 Other: # Voids 400 3 # Bowel Movements 0 Weight Source Bedscale Bedscale Active Medications: Current Medications Acetaminophen (Tylenol) 325 mg PO Q6HR PRN PRN Reason: Fever >101 Stop: 08/08/18 08:18 Last Admin: 06/11/18 21:29 Dose: 325 mg Acetaminophen (Tylenol) 650 mg PO Q6HR PRN PRN Reason: Pain (Mild) Stop: 08/08/18 08:18 Last Admin: 06/12/18 14:55 Dose: 650 mg Bisacodyl (Dulcolax 10 Mg Supp) 10 mg RC DAILY [facility] Stop: 08/12/18 08:59 Bisacodyl (Dulcolax 5 Mg Ec Tab) 10 mg PO DAILY [facility] Stop: 08/12/18 08:59 Diphenhydramine HCl (Benadryl) 50 mg PO Q6H PRN PRN Reason: Itching Stop: 08/10/18 19:28 Last Admin: 06/11/18 21:29 Dose: 50 mg Docusate Sodium (Colace) 100 mg PO DAILY [facility] Stop: 08/08/18 08:59 Last Admin: 06/12/18 08:34 Dose: 100 mg Enoxaparin Sodium (Lovenox) 40 mg SUBQ DAILY [facility] Stop: 08/08/18 08:59 Last Admin: 06/12/18 08:27 Dose: Not Given Dextrose/Sodium Chloride (D5-0.45ns) 1,000 mls @ 100 mls/hr IV .Q10H [facility] Stop: 08/08/18 08:44 Magnesium Hydroxide (Milk Of Magnesia) 30 ml PO HS PRN PRN Reason: Constipation Stop: 08/08/18 08:18 Ondansetron HCl (Zofran) 4 mg IV Q4H PRN PRN Reason: Nausea / Vomiting Stop: 08/08/18 08:28 Pantoprazole Sodium (Protonix) 40 mg IVP DAILY [facility] Stop: 08/08/18 08:59 Last Admin: 06/12/18 08:27 Dose: Not Given Polyethylene Glycol (Miralax) 17 gm PO BID [facility] Stop: 08/10/18 08:59 Last Admin: 06/12/18 16:33 Dose: Not Given General: weak, lethargic, demented, disheveled HEENT: NC/AT, PERRLA, EOMI, anicteric sclerae, throat clear Neck: Supple, No JVD, + JVD Lungs: CTAB Cardiovascular: RRR, Normal S1, Normal S2 Abdomen: soft, non-tender, non-distended Extremities: clear Neurological: no change Internal Medicine Assmt/Plan - Assessment Assessment: ALOC: on and off; observe. Intermittent abd pain: due to fecal impaction? pt refused Colonoscopy. Agitation: sitter PRN. Noncompliance: education provided. Skin rash/itching: Benadryl prn COPD: RT protocol.
[2018-06-13] MEDS: Enoxaparin 40 mg/0.4 mL 0.4mL Syr SUBQ SCH (09:03)
[2018-06-13] MEDS: POLYETHYLENE GLYCOL 3350 17 GM PACK PO SCH ×2 (09:04→18:04)
[2018-06-13 10:22] LABS: % BASOPHILS 1.3 % (0.0-2.0); % EOSINOPHILS 6.3 % (0.0-5.0); % LYMPHOCYTES 15.7 % (20.0-50.0); % MONOCYTES 14.9 % (2.0-10.0); % NEUTROPHILS 61.8 % (40.0-80.0); BASOPHILE ABSOLUTE 0.1 Th/cumm (0-0.2); EOSINOPHILE ABSOLUTE 0.5 Th/cmm (0.1-0.4); HEMATOCRIT 39.8 % (41.0-60); HEMOGLOBIN 13.2 gm/dL (12-16); LYMPHOCYTE ABSOLUTE 1.4 Th/cmm (1.5-3.0); MEAN CELL VOLUME 93.2 fl (80-99); MEAN CORPUSCULAR HEMOGLOBIN 30.8 pg (27.0-31.0); MEAN CORPUSCULAR HGB CONC 33.1 pg (28.0-36.0); MEAN PLATELET VOLUME 10.2 fl; MONOCYTE ABSOLUTE 1.3 Th/cmm (0.3-1.0); NEUTROPHILE ABSOLUTE 5.4 Th/cmm (1.8-8.0); PLATELET COUNT 206 Th/cmm (150-400); RED BLOOD COUNT 4.27 Mil/cmm (3.80-5.80); RED CELL DISTRIBUTION WIDTH 14.1 % (11.5-20.0); WHITE BLOOD COUNT 8.7 Th/cmm (4.8-10.8)
--- NOTE | 2018-06-13 10:28 | GI Progress Note ---
Subjective - Review of Systems Service Date: 06/13/18 Events since last encounter: No events; took dulcolax pills Objective - Results Result Diagrams: 06/13/18 09:45 06/09/18 05:15 Recent Labs: Laboratory Last Values WBC 8.7 Th/cmm (4.8-10.8) 06/13/18 09:45 RBC 4.27 Mil/cmm (3.80-5.80) 06/13/18 09:45 Hgb 13.2 gm/dL (12-16) 06/13/18 09:45 Hct 39.8 % (41.0-60) L 06/13/18 09:45 MCV 93.2 fl (80-99) 06/13/18 09:45 MCH 30.8 pg (27.0-31.0) 06/13/18 09:45 MCHC Differential 33.1 pg (28.0-36.0) 06/13/18 09:45 RDW 14.1 % (11.5-20.0) 06/13/18 09:45 Plt Count 206 Th/cmm (150-400) 06/13/18 09:45 MPV 10.2 fl 06/13/18 09:45 Add Manual Diff YES 06/09/18 05:15 Neutrophils % 61.8 % (40.0-80.0) 06/13/18 09:45 Band Neutrophils % 2 % (0-10) 06/09/18 05:15 Lymphocytes % 15.7 % (20.0-50.0) L 06/13/18 09:45 Monocytes % 14.9 % (2.0-10.0) H 06/13/18 09:45 Eosinophils % 6.3 % (0.0-5.0) H 06/13/18 09:45 Basophils % 1.3 % (0.0-2.0) 06/13/18 09:45 Neutrophils (Manual) 48 % (40-80) 06/09/18 05:15 Lymphocytes 32 % (20-50) 06/09/18 05:15 Monocytes 10 % (2-10) 06/09/18 05:15 Eosinophils 8 % (0-5) H 06/09/18 05:15 PT 10.0 SECONDS (9.5-11.5) 06/09/18 05:15 INR 0.96 (0.5-1.4) 06/09/18 05:15 Sodium 138 mEq/L (136-145) 06/09/18 05:15 Potassium 4.0 mEq/L (3.5-5.1) 06/09/18 05:15 Chloride 101 mEq/L (98-107) 06/09/18 05:15 Carbon Dioxide 31.7 mEq/L (21.0-31.0) H 06/09/18 05:15 Anion Gap 9.3 (7.0-16.0) 06/09/18 05:15 BUN 16 mg/dL (7-25) 06/09/18 05:15 Creatinine 0.5 mg/dL (0.7-1.3) L 06/09/18 05:15 Est GFR ( Amer) TNP 06/09/18 05:15 Est GFR (Non-Af Amer) TNP 06/09/18 05:15 BUN/Creatinine Ratio 32.0 06/09/18 05:15 Glucose 93 mg/dL (70-105) 06/09/18 05:15 Calcium 9.6 mg/dL (8.6-10.3) 06/09/18 05:15 Total Bilirubin 0.3 mg/dL (0.3-1.0) 06/09/18 05:15 AST 15 U/L (13-39) 06/09/18 05:15 ALT 9 U/L (7-52) 06/09/18 05:15 Alkaline Phosphatase 95 U/L (34-104) 06/09/18 05:15 Creatine Kinase 64 U/L (30-223) 06/09/18 05:15 Troponin I 0.01 ng/mL (0.01-0.05) 06/09/18 05:15 B-Natriuretic Peptide 71.0 pg/mL (5.0-100.0) 06/09/18 05:15 Total Protein 6.5 gm/dL (6.0-8.3) 06/09/18 05:15 Albumin 3.6 gm/dL (4.2-5.5) L 06/09/18 05:15 Globulin 2.9 gm/dL 06/09/18 05:15 Albumin/Globulin Ratio 1.2 (1.0-1.8) 06/09/18 05:15 Triglycerides 56 mg/dL (<150) 06/09/18 05:15 Cholesterol 140 mg/dL (<200) 06/09/18 05:15 LDL Cholesterol Direct 81 mg/dL (75-193) 06/09/18 05:15 HDL Cholesterol 51 mg/dL (23-92) 06/09/18 05:15 Amylase 45 U/L (29-103) 06/09/18 05:15 Lipase 26 U/L (11-82) 06/09/18 05:15 Urine Source RANDOM 06/09/18 04:20 Urine Color YELLOW 06/09/18 04:20 Urine Clarity CLEAR (CLEAR) 06/09/18 04:20 Urine pH 7.5 (4.6 - 8.0) 06/09/18 04:20 Ur Specific [place] 1.010 (1.005-1.030) 06/09/18 04:20 Urine Protein NEGATIVE mg/dL (NEGATIVE) 06/09/18 04:20 Urine Glucose (UA) NEGATIVE mg/dL (NEGATIVE) 06/09/18 04:20 Urine Ketones NEGATIVE mg/dL (NEGATIVE) 06/09/18 04:20 Urine Blood NEGATIVE (NEGATIVE) 06/09/18 04:20 Urine Nitrate NEGATIVE (NEGATIVE) 06/09/18 04:20 Urine Bilirubin NEGATIVE (NEGATIVE) 06/09/18 04:20 Urine Urobilinogen 0.2 E.U./dL (0.2 - 1.0) 06/09/18 04:20 Ur Leukocyte Esterase NEGATIVE (NEGATIVE) 06/09/18 04:20 Urine RBC NONE SEEN /hpf (0-5) 06/09/18 04:20 Urine WBC NONE SEEN /hpf (0-5) 06/09/18 04:20 Ur Epithelial Cells RARE /lpf (FEW) 06/09/18 04:20 Urine Bacteria NONE SEEN /hpf (NONE SEEN) 06/09/18 04:20 - Physical Exam Vitals and I&O: Vital Signs Temp 97.6 F 06/13/18 07:44 Pulse 87 06/13/18 07:44 Resp 18 06/13/18 08:00 BP 149/64 06/13/18 07:44 Pulse Ox 97 06/13/18 07:44 Intake & Output 06/12/18 06/13/18 06/13/18 18:59 06:59 18:59 Intake Total 500 400 Balance 500 400 Weight (lbs) 70.76 kg 70.76 kg Intake: Oral 500 400 Other: # Voids 3 2 # Bowel Movements 0 Weight Source Bedscale Bedscale Active Medications: Current Medications Acetaminophen (Tylenol) 325 mg PO Q6HR PRN PRN Reason: Fever >101 Stop: 08/08/18 08:18 Last Admin: 06/11/18 21:29 Dose: 325 mg Acetaminophen (Tylenol) 650 mg PO Q6HR PRN PRN Reason: Pain (Mild) Stop: 08/08/18 08:18 Last Admin: 06/12/18 22:46 Dose: 650 mg Bisacodyl (Dulcolax 10 Mg Supp) 10 mg RC DAILY [facility] Stop: 08/12/18 08:59 Last Admin: 06/13/18 09:04 Dose: Not Given Bisacodyl (Dulcolax 5 Mg Ec Tab) 10 mg PO DAILY [facility] Stop: 08/12/18 08:59 Last Admin: 06/13/18 09:04 Dose: 10 mg Diphenhydramine HCl (Benadryl) 50 mg PO Q6H PRN PRN Reason: Itching Stop: 08/10/18 19:28 Last Admin: 06/11/18 21:29 Dose: 50 mg Docusate Sodium (Colace) 100 mg PO DAILY [facility] Stop: 08/08/18 08:59 Last Admin: 06/13/18 09:04 Dose: 100 mg Enoxaparin Sodium (Lovenox) 40 mg SUBQ DAILY [facility] Stop: 08/08/18 08:59 Last Admin: 06/13/18 09:03 Dose: Not Given Dextrose/Sodium Chloride (D5-0.45ns) 1,000 mls @ 100 mls/hr IV .Q10H [facility] Stop: 08/08/18 08:44 Magnesium Hydroxide (Milk Of Magnesia) 30 ml PO HS PRN PRN Reason: Constipation Stop: 08/08/18 08:18 Last Admin: 06/13/18 02:45 Dose: 30 ml Ondansetron HCl (Zofran) 4 mg IV Q4H PRN PRN Reason: Nausea / Vomiting Stop: 08/08/18 08:28 Pantoprazole Sodium (Protonix) 40 mg IVP DAILY [facility] Stop: 08/08/18 08:59 Last Admin: 06/13/18 09:03 Dose: 40 mg Polyethylene Glycol (Miralax) 17 gm PO BID [facility] Stop: 08/10/18 08:59 Last Admin: 06/13/18 09:04 Dose: Not Given General: Alert, Other (disheveled appearing) Cardiovascular: Regular rate Abdomen: Bowel sounds, no Soft, no Tender, no Hepatomegaly, no Distended, no Rebound, no Mass Assessment/Plan - Assessment Assessment: # Fecal impaction on CT Pt refusing all intervention including laxatives and IV line. He is eating his meals. Appropriate therapy would be for tap water enemas, and miralax bid to produce BMs. Pt is not compliant with this. Plan: - try dulcolax by mouth and [place] as pt apparently taking pills - if pt allows, enema and miralax - diet as tolerated - suggest psych eval
[2018-06-13 10:48] LABS: ALB/GLOB RATIO 1.1 (1.0-1.8); ALBUMIN 3.5 gm/dL (4.2-5.5); ALKALINE PHOSPHATASE 84 U/L (34-104); ANION GAP 10.5 (7.0-16.0); BILIRUBIN,TOTAL 0.3 mg/dL (0.3-1.0); BUN - UREA NITROGEN 17 mg/dL (7-25); CALCIUM SERUM 9.4 mg/dL (8.6-10.3); CARBON DIOXIDE 27.5 mEq/L (21.0-31.0); CHLORIDE 98 mEq/L (98-107); CREATININE - SERUM 0.5 mg/dL (0.7-1.3); GLUCOSE 128 mg/dL (70-105); SGOT 12 U/L (13-39); SGPT/ALT 9 U/L (7-52); SODIUM SERUM 132 mEq/L (136-145); TOTAL PROTEIN,SERUM 6.6 gm/dL (6.0-8.3)
--- NOTE | 2018-06-13 21:03 | Internal Medicine Prog Note ---
Internal Medicine Subjective - Subjective Service Date: 06/13/18 Patient seen and examined:: without staff Patient is:: awake, verbal, non-interactive, arousable, in bed Per staff patient has:: no adverse event Internal Medicine Objective - Results Result Diagrams: 06/13/18 09:45 06/13/18 09:45 Recent Labs: Laboratory Last Values WBC 8.7 Th/cmm (4.8-10.8) 06/13/18 09:45 RBC 4.27 Mil/cmm (3.80-5.80) 06/13/18 09:45 Hgb 13.2 gm/dL (12-16) 06/13/18 09:45 Hct 39.8 % (41.0-60) L 06/13/18 09:45 MCV 93.2 fl (80-99) 06/13/18 09:45 MCH 30.8 pg (27.0-31.0) 06/13/18 09:45 MCHC Differential 33.1 pg (28.0-36.0) 06/13/18 09:45 RDW 14.1 % (11.5-20.0) 06/13/18 09:45 Plt Count 206 Th/cmm (150-400) 06/13/18 09:45 MPV 10.2 fl 06/13/18 09:45 Add Manual Diff YES 06/09/18 05:15 Neutrophils % 61.8 % (40.0-80.0) 06/13/18 09:45 Band Neutrophils % 2 % (0-10) 06/09/18 05:15 Lymphocytes % 15.7 % (20.0-50.0) L 06/13/18 09:45 Monocytes % 14.9 % (2.0-10.0) H 06/13/18 09:45 Eosinophils % 6.3 % (0.0-5.0) H 06/13/18 09:45 Basophils % 1.3 % (0.0-2.0) 06/13/18 09:45 Neutrophils (Manual) 48 % (40-80) 06/09/18 05:15 Lymphocytes 32 % (20-50) 06/09/18 05:15 Monocytes 10 % (2-10) 06/09/18 05:15 Eosinophils 8 % (0-5) H 06/09/18 05:15 PT 10.0 SECONDS (9.5-11.5) 06/09/18 05:15 INR 0.96 (0.5-1.4) 06/09/18 05:15 Sodium 132 mEq/L (136-145) L 06/13/18 09:45 Potassium 4.0 mEq/L (3.5-5.1) 06/13/18 09:45 Chloride 98 mEq/L (98-107) 06/13/18 09:45 Carbon Dioxide 27.5 mEq/L (21.0-31.0) 06/13/18 09:45 Anion Gap 10.5 (7.0-16.0) 06/13/18 09:45 BUN 17 mg/dL (7-25) 06/13/18 09:45 Creatinine 0.5 mg/dL (0.7-1.3) L 06/13/18 09:45 Est GFR ( Amer) TNP 06/13/18 09:45 Est GFR (Non-Af Amer) TNP 06/13/18 09:45 BUN/Creatinine Ratio 34.0 06/13/18 09:45 Glucose 128 mg/dL (70-105) H 06/13/18 09:45 Calcium 9.4 mg/dL (8.6-10.3) 06/13/18 09:45 Total Bilirubin 0.3 mg/dL (0.3-1.0) 06/13/18 09:45 AST 12 U/L (13-39) L 06/13/18 09:45 ALT 9 U/L (7-52) 06/13/18 09:45 Alkaline Phosphatase 84 U/L (34-104) 06/13/18 09:45 Creatine Kinase 64 U/L (30-223) 06/09/18 05:15 Troponin I 0.01 ng/mL (0.01-0.05) 06/09/18 05:15 B-Natriuretic Peptide 71.0 pg/mL (5.0-100.0) 06/09/18 05:15 Total Protein 6.6 gm/dL (6.0-8.3) 06/13/18 09:45 Albumin 3.5 gm/dL (4.2-5.5) L 06/13/18 09:45 Globulin 3.1 gm/dL 06/13/18 09:45 Albumin/Globulin Ratio 1.1 (1.0-1.8) 06/13/18 09:45 Triglycerides 56 mg/dL (<150) 06/09/18 05:15 Cholesterol 140 mg/dL (<200) 06/09/18 05:15 LDL Cholesterol Direct 81 mg/dL (75-193) 06/09/18 05:15 HDL Cholesterol 51 mg/dL (23-92) 06/09/18 05:15 Amylase 45 U/L (29-103) 06/09/18 05:15 Lipase 26 U/L (11-82) 06/09/18 05:15 Urine Source RANDOM 06/09/18 04:20 Urine Color YELLOW 06/09/18 04:20 Urine Clarity CLEAR (CLEAR) 06/09/18 04:20 Urine pH 7.5 (4.6 - 8.0) 06/09/18 04:20 Ur Specific [place] 1.010 (1.005-1.030) 06/09/18 04:20 Urine Protein NEGATIVE mg/dL (NEGATIVE) 06/09/18 04:20 Urine Glucose (UA) NEGATIVE mg/dL (NEGATIVE) 06/09/18 04:20 Urine Ketones NEGATIVE mg/dL (NEGATIVE) 06/09/18 04:20 Urine Blood NEGATIVE (NEGATIVE) 06/09/18 04:20 Urine Nitrate NEGATIVE (NEGATIVE) 06/09/18 04:20 Urine Bilirubin NEGATIVE (NEGATIVE) 06/09/18 04:20 Urine Urobilinogen 0.2 E.U./dL (0.2 - 1.0) 06/09/18 04:20 Ur Leukocyte Esterase NEGATIVE (NEGATIVE) 06/09/18 04:20 Urine RBC NONE SEEN /hpf (0-5) 06/09/18 04:20 Urine WBC NONE SEEN /hpf (0-5) 06/09/18 04:20 Ur Epithelial Cells RARE /lpf (FEW) 06/09/18 04:20 Urine Bacteria NONE SEEN /hpf (NONE SEEN) 06/09/18 04:20 - Physical Exam Vitals and I&O: Vital Signs Temp 98.7 F 06/13/18 20:00 Pulse 89 06/13/18 20:00 Resp 17 06/13/18 20:00 BP 113/50 06/13/18 20:00 Pulse Ox 94 06/13/18 20:00 Intake & Output 06/13/18 06/13/18 06/14/18 06:59 18:59 06:59 Intake Total 400 Balance 400 Weight (lbs) 70.76 kg Intake: Oral 400 Other: # Voids 2 # Bowel Movements 0 Weight Source Bedscale Active Medications: Current Medications Acetaminophen (Tylenol) 325 mg PO Q6HR PRN PRN Reason: Fever >101 Stop: 08/08/18 08:18 Last Admin: 06/13/18 14:58 Dose: 325 mg Acetaminophen (Tylenol) 650 mg PO Q6HR PRN PRN Reason: Pain (Mild) Stop: 08/08/18 08:18 Last Admin: 06/12/18 22:46 Dose: 650 mg Bisacodyl (Dulcolax 10 Mg Supp) 10 mg RC DAILY [facility] Stop: 08/12/18 08:59 Last Admin: 06/13/18 09:04 Dose: Not Given Bisacodyl (Dulcolax 5 Mg Ec Tab) 10 mg PO DAILY [facility] Stop: 08/12/18 08:59 Last Admin: 06/13/18 09:04 Dose: 10 mg Diphenhydramine HCl (Benadryl) 50 mg PO Q6H PRN PRN Reason: Itching Stop: 08/10/18 19:28 Last Admin: 06/11/18 21:29 Dose: 50 mg Docusate Sodium (Colace) 100 mg PO DAILY [facility] Stop: 08/08/18 08:59 Last Admin: 06/13/18 09:04 Dose: 100 mg Enoxaparin Sodium (Lovenox) 40 mg SUBQ DAILY [facility] Stop: 08/08/18 08:59 Last Admin: 06/13/18 09:03 Dose: Not Given Dextrose/Sodium Chloride (D5-0.45ns) 1,000 mls @ 100 mls/hr IV .Q10H [facility] Stop: 08/08/18 08:44 Magnesium Hydroxide (Milk Of Magnesia) 30 ml PO HS PRN PRN Reason: Constipation Stop: 08/08/18 08:18 Last Admin: 06/13/18 02:45 Dose: 30 ml Ondansetron HCl (Zofran) 4 mg IV Q4H PRN PRN Reason: Nausea / Vomiting Stop: 08/08/18 08:28 Pantoprazole Sodium (Protonix) 40 mg IVP DAILY [facility] Stop: 08/08/18 08:59 Last Admin: 06/13/18 09:03 Dose: 40 mg Polyethylene Glycol (Miralax) 17 gm PO BID [facility] Stop: 08/10/18 08:59 Last Admin: 06/13/18 18:04 Dose: Not Given General: weak, lethargic, demented, disheveled HEENT: NC/AT, PERRLA, EOMI, anicteric sclerae, throat clear Neck: Supple, No JVD, + JVD Lungs: CTAB Cardiovascular: RRR, Normal S1, Normal S2 Abdomen: soft, non-tender, non-distended Extremities: clear Neurological: no change Internal Medicine Assmt/Plan - Assessment Assessment: Hyponatremia: will repeat BMP. ALOC: on and off; observe. Intermittent abd pain: due to fecal impaction? pt refused Colonoscopy. Agitation: sitter PRN. Noncompliance: education provided. Skin rash/itching: Benadryl prn COPD: RT protocol. Nutritional Asmnt/Malnutr-PDOC - Dietary Evaluation Malnutrition Findings (Please click <Entered> for more info): Nutritional Asmnt/Malnutrition Start: 06/13/18 17: 47 Text: Status: Complete Freq: Protocol: Document 06/13/18 17:47 LCHENG (Rec: 06/13/18 17:53 [email or web address] [id number]) Nutritional Asmnt/Malnutrition Patient General Information Nutritional Screening Moderate Risk Diagnosis intractable abdominal pain Pertinent Medical Hx/Surgical Hx schizophrenia, COPD, asthma, HTN Subjective Information pt seen sitting up in bed at time of visit. Pt stated good appetite, so fat good is good, would like more hard boiled eggs. Per RN, pt had fecal impaction, has BM now. Per EMR , PO intake 100%. Current Diet Order/ Nutrition Support soft balnd Pertinent Medications D5-0.45ns, colace, protonix, miralax Pertinent Labs 06/13 Na 132, cr 0.5, glucose 128, alb 3.5 Nutritional Hx/Data Height 1.78 m Height (Calculated Centimeters) 177.8 Current Weight (lbs) 70.76 kg Weight (Calculated Kilograms) 70.8 Weight (Calculated Grams) 79673.4 [place] Body Weight 166 Body Mass Index (BMI) 22.4 Weight Status Approriate GI Symptoms GI Symptoms None Difficult in: None Skin Integrity/Comment: reddened to left foot, right toe, left arm, ulceration to right buttocks Current %PO Good (75-100%) Estimated Nutritional Goals BEE in Kcals: Using Current wt Calories/Kcals/Kg 25-30 Kcals Calculated 5151-5797 Protein: Using Current wt Protein g/k Protein Calculated 71 Fluid: ml 1775-2130ml (1ml/kcal) Nutritional Problem No current Nutrition Prob Problem N/A Malnutrition Alert Is there a minimum of two criteria No selected? Query Text:Check all the applicable criteria. A minimum of two criteria are recommended for diagnosis of either severe or non-severe malnutrition. Malnutrition Related to Morbid Obesity Malnutrition related to morbid obesity No Intervention/Recommendation Comments 1. Continue with soft bland diet as ordered. 2. Monitor PO intake, wt, labs and skin integrity 3. F/U as low risk in 7 days Expected Outcomes/Goals Expected Outcomes/Goals 1. PO intake to meet at least 75% of nutritional needs. 2. Wt stability, skin to remain intact, labs to approach WNL.
[2018-06-14] MEDS: POLYETHYLENE GLYCOL 3350 17 GM PACK PO SCH (08:10)
[2018-06-14] MEDS: Enoxaparin 40 mg/0.4 mL 0.4mL Syr SUBQ SCH ×2 (08:10→08:26)
--- NOTE | 2018-06-14 11:06 | Consultation ---
DATE OF CONSULTATION: 06/14/2018 PSYCHIATRIC CONSULTATION PHYSICIAN: Dr. Ruiz. APPLICATION SUPPORT ENGINEER: Dr. Brandt. TYPE OF THE REPORT: Psychiatric consult. REASON FOR THE CONSULT: Evaluating psychotropic medications. HISTORY OF PRESENT ILLNESS: The patient is a 73-year-old male who was admitted to the hospital because of intermittent abdominal pain. The patient has been confused and has been agitated and noncompliant with treatment recommendations. The patient also has a history of psychosis. The patient also uncooperative with the staff and refused colonoscopy. The patient was agitated earlier and the patient was given Haldol and Ativan. The patient currently is sedated. The patient is taking Seroquel 50 mg twice a day. I was not able to interview the patient completely and most of the information obtained from reviewing records and staff. JOB# [id number]
--- NOTE | 2018-06-14 11:12 | Consultation ---
DATE OF CONSULTATION: 06/14/2018 PSYCHIATRIC CONSULTATION AGE: 73. SEX: Male. PHYSICIAN: Dr. Ruiz. SPECIAL FORCES ENGINEER SERGEANT: Dr. Brandt. REASON FOR THE CONSULT: Agitation and noncompliant with treatment. HISTORY OF PRESENT ILLNESS: The patient is a 74-year-old male admitted to the hospital because of intermittent abdominal pain. The patient refused colonoscopy and he has been agitated and has episodes of irritability. The patient also apparently was agitated earlier and currently is sedated. He has history of psychosis. I was unable to get information from the patient at this time because was sedated and sleepy. PAST PSYCHIATRIC HISTORY: The patient has history of schizophrenia according to the chart and also psychosis. PAST MEDICAL HISTORY: The patient has a history of COPD as well as hypertension and bronchial asthma. SOCIAL HISTORY: The patient lives in a group home. No known alcohol or drug use. MENTAL STATUS EXAM: The patient appears his stated age. Sleepy and sedated. The patient did not answer any of my questions at this time and unable to get information because of being sedated. Unable to continue or complete the mental status exam because of his sedation. ASSESSMENT: PRIMARY DIAGNOSIS: Schizophrenia by history. TREATMENT PLAN: We will monitor the patient's behavior. We will reevaluate the patient with more alert and talkative. Thanks to Dr. Ruiz and we will follow with you. JOB# [id number]
--- NOTE | 2018-06-14 12:13 | GI Progress Note ---
Subjective - Review of Systems Service Date: 06/14/18 Events since last encounter: Patient feels well, had bm yesterday Objective - Results Result Diagrams: 06/13/18 09:45 06/13/18 09:45 Recent Labs: Laboratory Last Values WBC 8.7 Th/cmm (4.8-10.8) 06/13/18 09:45 RBC 4.27 Mil/cmm (3.80-5.80) 06/13/18 09:45 Hgb 13.2 gm/dL (12-16) 06/13/18 09:45 Hct 39.8 % (41.0-60) L 06/13/18 09:45 MCV 93.2 fl (80-99) 06/13/18 09:45 MCH 30.8 pg (27.0-31.0) 06/13/18 09:45 MCHC Differential 33.1 pg (28.0-36.0) 06/13/18 09:45 RDW 14.1 % (11.5-20.0) 06/13/18 09:45 Plt Count 206 Th/cmm (150-400) 06/13/18 09:45 MPV 10.2 fl 06/13/18 09:45 Add Manual Diff YES 06/09/18 05:15 Neutrophils % 61.8 % (40.0-80.0) 06/13/18 09:45 Band Neutrophils % 2 % (0-10) 06/09/18 05:15 Lymphocytes % 15.7 % (20.0-50.0) L 06/13/18 09:45 Monocytes % 14.9 % (2.0-10.0) H 06/13/18 09:45 Eosinophils % 6.3 % (0.0-5.0) H 06/13/18 09:45 Basophils % 1.3 % (0.0-2.0) 06/13/18 09:45 Neutrophils (Manual) 48 % (40-80) 06/09/18 05:15 Lymphocytes 32 % (20-50) 06/09/18 05:15 Monocytes 10 % (2-10) 06/09/18 05:15 Eosinophils 8 % (0-5) H 06/09/18 05:15 PT 10.0 SECONDS (9.5-11.5) 06/09/18 05:15 INR 0.96 (0.5-1.4) 06/09/18 05:15 Sodium 132 mEq/L (136-145) L 06/13/18 09:45 Potassium 4.0 mEq/L (3.5-5.1) 06/13/18 09:45 Chloride 98 mEq/L (98-107) 06/13/18 09:45 Carbon Dioxide 27.5 mEq/L (21.0-31.0) 06/13/18 09:45 Anion Gap 10.5 (7.0-16.0) 06/13/18 09:45 BUN 17 mg/dL (7-25) 06/13/18 09:45 Creatinine 0.5 mg/dL (0.7-1.3) L 06/13/18 09:45 Est GFR ( Amer) TNP 06/13/18 09:45 Est GFR (Non-Af Amer) TNP 06/13/18 09:45 BUN/Creatinine Ratio 34.0 06/13/18 09:45 Glucose 128 mg/dL (70-105) H 06/13/18 09:45 Calcium 9.4 mg/dL (8.6-10.3) 06/13/18 09:45 Total Bilirubin 0.3 mg/dL (0.3-1.0) 06/13/18 09:45 AST 12 U/L (13-39) L 06/13/18 09:45 ALT 9 U/L (7-52) 06/13/18 09:45 Alkaline Phosphatase 84 U/L (34-104) 06/13/18 09:45 Creatine Kinase 64 U/L (30-223) 06/09/18 05:15 Troponin I 0.01 ng/mL (0.01-0.05) 06/09/18 05:15 B-Natriuretic Peptide 71.0 pg/mL (5.0-100.0) 06/09/18 05:15 Total Protein 6.6 gm/dL (6.0-8.3) 06/13/18 09:45 Albumin 3.5 gm/dL (4.2-5.5) L 06/13/18 09:45 Globulin 3.1 gm/dL 06/13/18 09:45 Albumin/Globulin Ratio 1.1 (1.0-1.8) 06/13/18 09:45 Triglycerides 56 mg/dL (<150) 06/09/18 05:15 Cholesterol 140 mg/dL (<200) 06/09/18 05:15 LDL Cholesterol Direct 81 mg/dL (75-193) 06/09/18 05:15 HDL Cholesterol 51 mg/dL (23-92) 06/09/18 05:15 Amylase 45 U/L (29-103) 06/09/18 05:15 Lipase 26 U/L (11-82) 06/09/18 05:15 Urine Source RANDOM 06/09/18 04:20 Urine Color YELLOW 06/09/18 04:20 Urine Clarity CLEAR (CLEAR) 06/09/18 04:20 Urine pH 7.5 (4.6 - 8.0) 06/09/18 04:20 Ur Specific [place] 1.010 (1.005-1.030) 06/09/18 04:20 Urine Protein NEGATIVE mg/dL (NEGATIVE) 06/09/18 04:20 Urine Glucose (UA) NEGATIVE mg/dL (NEGATIVE) 06/09/18 04:20 Urine Ketones NEGATIVE mg/dL (NEGATIVE) 06/09/18 04:20 Urine Blood NEGATIVE (NEGATIVE) 06/09/18 04:20 Urine Nitrate NEGATIVE (NEGATIVE) 06/09/18 04:20 Urine Bilirubin NEGATIVE (NEGATIVE) 06/09/18 04:20 Urine Urobilinogen 0.2 E.U./dL (0.2 - 1.0) 06/09/18 04:20 Ur Leukocyte Esterase NEGATIVE (NEGATIVE) 06/09/18 04:20 Urine RBC NONE SEEN /hpf (0-5) 06/09/18 04:20 Urine WBC NONE SEEN /hpf (0-5) 06/09/18 04:20 Ur Epithelial Cells RARE /lpf (FEW) 06/09/18 04:20 Urine Bacteria NONE SEEN /hpf (NONE SEEN) 06/09/18 04:20 - Physical Exam Vitals and I&O: Vital Signs Temp 98 F 06/14/18 08:00 Pulse 76 06/14/18 08:00 Resp 18 06/14/18 08:00 BP 110/47 06/14/18 08:00 Pulse Ox 95 06/14/18 08:00 Intake & Output 06/13/18 06/14/18 06/14/18 18:59 06:59 18:59 Intake Total 240 Balance 240 Weight (lbs) 70.76 kg Intake: Oral 240 Other: # Voids 2 Weight Source Bedscale Active Medications: Current Medications Acetaminophen (Tylenol) 325 mg PO Q6HR PRN PRN Reason: Fever >101 Stop: 08/08/18 08:18 Last Admin: 06/13/18 21:37 Dose: 325 mg Acetaminophen (Tylenol) 650 mg PO Q6HR PRN PRN Reason: Pain (Mild) Stop: 08/08/18 08:18 Last Admin: 06/12/18 22:46 Dose: 650 mg Bisacodyl (Dulcolax 10 Mg Supp) 10 mg RC DAILY [facility] Stop: 08/12/18 08:59 Last Admin: 06/14/18 08:27 Dose: Not Given Bisacodyl (Dulcolax 5 Mg Ec Tab) 10 mg PO DAILY [facility] Stop: 08/12/18 08:59 Last Admin: 06/14/18 08:09 Dose: 10 mg Diphenhydramine HCl (Benadryl) 50 mg PO Q6H PRN PRN Reason: Itching Stop: 08/10/18 19:28 Last Admin: 06/11/18 21:29 Dose: 50 mg Docusate Sodium (Colace) 100 mg PO DAILY [facility] Stop: 08/08/18 08:59 Last Admin: 06/14/18 08:10 Dose: 100 mg Enoxaparin Sodium (Lovenox) 40 mg SUBQ DAILY [facility] Stop: 08/08/18 08:59 Last Admin: 06/14/18 08:26 Dose: Not Given Dextrose/Sodium Chloride (D5-0.45ns) 1,000 mls @ 100 mls/hr IV .Q10H [facility] Stop: 08/08/18 08:44 Magnesium Hydroxide (Milk Of Magnesia) 30 ml PO HS PRN PRN Reason: Constipation Stop: 08/08/18 08:18 Last Admin: 06/13/18 02:45 Dose: 30 ml Ondansetron HCl (Zofran) 4 mg IV Q4H PRN PRN Reason: Nausea / Vomiting Stop: 08/08/18 08:28 Pantoprazole Sodium (Protonix) 40 mg IVP DAILY [facility] Stop: 08/08/18 08:59 Last Admin: 06/14/18 08:10 Dose: 40 mg Polyethylene Glycol (Miralax) 17 gm PO BID [facility] Stop: 08/10/18 08:59 Last Admin: 06/14/18 08:10 Dose: 17 gm General: Alert, Other (disheveled appearing) Cardiovascular: Regular rate Abdomen: Bowel sounds, no Soft, no Tender, no Hepatomegaly, no Distended, no Rebound, no Mass Assessment/Plan - Assessment Assessment: # Fecal impaction on CT Pt refusing all intervention including laxatives and IV line. He is eating his meals. Appropriate therapy would be for tap water enemas, and miralax bid to produce BMs. Pt is not compliant with this. Plan: - try dulcolax by mouth and TN as pt apparently taking pills - if pt allows, enema and miralax - diet as tolerated Gi will follow
--- NOTE | 2018-06-29 16:05 | Discharge Summary ---
DATE OF DISCHARGE: 06/14/2018 FINAL DIAGNOSES: 1. Abdominal pain, resolved. 2. Fecal retention, resolved. 3. Psychosis, improved. 4. Altered level of consciousness, improved. HOSPITAL COURSE: The patient is a 73-year-old male admitted due to altered level of consciousness with abdominal pain, probably from fecal retention. The patient was very confused with psychotic episodes as well. He was kept n.p.o. initially and IV fluid was provided. A psychiatric consultation and GI consultation were obtained and appreciated. The patient's condition stabilized, [facility] was accepted [facility] to [facility]. DISCHARGE CONDITION: Stable. DISPOSITION: [facility]. DISCHARGE MEDICATIONS: Continue medication from here. DIET: Cardiac, soft diet. ACTIVITY: Bed rest with physical therapy. FOLLOWUP: One week. [facility]# [id number]
== END 2018-06-14 16:05 | DRG 388 ==
LOC: ER 04:02 → MSI 06:15
PROVIDERS: ADMIT Internal Medicine; ATTEND Internal Medicine
DX: K56.41 Fecal impaction (principal); G93.41 Metabolic encephalopathy; E87.1 Hypo-osmolality and hyponatremia; J44.9 Chronic obstructive pulmonary disease, unspecified; F03.90 Unspecified dementia, unspecified severity, without behavioral disturbance, psychotic disturbance, mood disturbance, and anxiety; F20.9 Schizophrenia, unspecified; I10 Essential (primary) hypertension; F29 Unspecified psychosis not due to a substance or known physiological condition; E78.5 Hyperlipidemia, unspecified; K29.70 Gastritis, unspecified, without bleeding; K52.9 Noninfective gastroenteritis and colitis, unspecified; R21 Rash and other nonspecific skin eruption; Z91.19 Patient's noncompliance with other medical treatment and regimen; Z88.1 Allergy status to other antibiotic agents; Z82.49 Family history of ischemic heart disease and other diseases of the circulatory system
CPT/HCPCS: 36415-UA; 71045-TC; 80053-TC; 80061-TC; 81001-TC; 82150-TC; 82550-TC; 83690-TC; 83880-TC; 84484-TC; 85007-TC; 85025-TC; 85610-TC; 93005; 96374; C9113; J1650; J2405; Z7610